=== PATIENT | female | born 1990 | race American Indian/Alaskan Native ===

== ENCOUNTER 2017-02-22 15:27 | Outpatient (CLI) | payer SELFPAY ==
[2017-02-22] MEDS ORDERED: LACTATED RINGERS 500 ML IV ONE (16:31)
[2017-02-22 16:44] VITALS: BP 108/60
[2017-02-22 18:58] LABS: Bacteria,Urine 4+ /HPF (Negative); Bilirubin,Urine NEG (Negative); Blood,Urine NEG (Negative); Ketones,Urine NEG (Negative); Leukocyte Esterase,Urine SM (Negative); Mucus,Urine 2+ /HPF; Nitrite,Urine NEG (Negative); Protein,Urine <15 mg/dL mg/dL (Negative); Urobilinogen,Urine < 2.0 mg/dL (<2.0)
--- NOTE | 2017-02-22 21:34 | Event Note ---
Date: 02/22/17 Patient is a 25 week, 2 day female who presented to L&D triage late this afternoon. She was seen and evaluated by Dr. Polk after her arrival to triage. Patient reports recurrent pelvic pain and pressure intermittently since yesterday. She was at work today and states the pain became unbearable so she came to hospital. Pt. denies falls or abdominal trauma. Pt. denies vaginal bleeding or leaking of fluid. Pt. reports active movement. GBS culture and GC/CT cultures were done by Dr. Polk. Pt. denies urinary symptoms. Pt. is well appearing, afebrile, VSS. Abdomen gravid, soft, nontender without guarding or rigidity. No contractions palpated. FHR 145-150 AGA. A few contractions noted upon review of tracing, no regular contractions. Unable to do FFN due to patient already being checked earlier this evening by MD. SVE: internal os closed, external os 2 cm, thick, soft, posterior. Urine sent for C&S. Consulted with Dr. Coto regarding patient and EFM/ cervical exam findings. Dr. Coto states to order an US for antomy and cervical length and have nurse call him with results. This plan was discussed with pt. and with nurse.
--- NOTE | 2017-02-22 23:00 | Ultrasound Report ---
FINAL REPORT PROCEDURE: US OB \T\gt; = 14 WEEKS FETUS TECHNIQUE: Real-time transabdominal sonography of the uterus, placenta, amniotic fluid, adnexa, and fetus was performed with image documentation. Detailed anatomic examination was performed. Measurements were obtained to determine age/size. M-mode Doppler was used to document heartbeat. CPT 41192 HISTORY: anatomy and cervical length COMPARISON: No prior studies are available for comparison. FINDINGS: GENERAL: IUP: Single living intrauterine . Position: Breech Placental position: Fundal, without previa. Amniotic fluid volume: Normal. MATERNAL: Uterus: Within normal limits. Cervical length: 3.4 cm. Internal Os: Closed. FETUS: Heart rate and rhythm: 162 BPM, Regular . Detailed anatomic examination: Normal. Normal visualized choroid plexus. Normal cerebellum. Normal ventricles. Normal visualized stomach. Normal visualized kidneys. Normal visualized bladder. Normal cord insert. Suboptimal four-chamber cardiac visualization. Normal visualized spine. Normal visualized extremities MEASUREMENTS: BPD: 5.5 cm, 22 weeks 5 days HC: 20.9 cm, 23 weeks 0 days. AC: 18.2 cm, 23 weeks 0 days FL: 4.3 cm, 24 weeks 0 days Mean Gestational Age (composite criteria): 23 weeks 1 day Estimated Weight: 603 grams. Estimated Due Date : June 20, 2017 IMPRESSION: Single intrauterine gestation at 23 weeks 1 day Estimated due date: June 20, 2017 Normal visualized anatomy with incomplete visualization of the four-chamber heart.
== END 2017-02-22 22:24 | disposition home or self-care (01) ==
LOC: TRG 15:27
PROVIDERS: ATTEND Obstetrics & Gynecology
DX: O32.1XX0 Maternal care for breech presentation, not applicable or unspecified (principal); O47.02 False labor before 37 completed weeks of gestation, second trimester; Z3A.23 23 weeks gestation of pregnancy
CPT/HCPCS: 76805; 81001; 87086; 87116; 87591

== ENCOUNTER 2017-05-14 11:57 | Inpatient (IN) | payer OTHER ==
[2017-05-14] MEDS ORDERED: ePHEDrine SULFATE IV PRN (12:45)
[2017-05-14] MEDS ORDERED: XYLOCAINE 2% INFILTRATI ONE (12:45)
[2017-05-14] MEDS ORDERED: BRETHINE SUB-Q PRN (12:45)
[2017-05-14] MEDS ORDERED: SUBLIMAZE IV PRN (12:45)
[2017-05-14] MEDS ORDERED: BRETHINE IVP PRN (12:45)
[2017-05-14] MEDS ORDERED: MINERAL OIL PO PRN (12:45)
[2017-05-14] MEDS ORDERED: PITOCin/NS 30 UNIT/500ML 30 UNITS/500 ML BAG IV SCH ×2 (13:00)
[2017-05-14] MEDS ORDERED: LACTATED RINGERS 1,000 ML IV SCH (13:00)
[2017-05-14] MEDS ORDERED: PITOCin/NS 20 UNIT/1000ML DRIP 20 UNITS/1,000 ML BAG IV SCH ×2 (13:00→23:00)
[2017-05-14] MEDS ORDERED: POLYCILLIN/NS 2 GM/100 ML 2 GM/100 ML BAG IV ONE (13:00)
[2017-05-14 15:02] LABS: Hematocrit 39.3 % (30.3-42.9); Hemoglobin 13.2 gm/dl (10.1-14.3); Mean Corpuscular HGB Conc 34 % (30-34); Mean Corpuscular Hemoglobin 33 pg (28-32); Mean Corpuscular Volume 99 fl (79-97); Platelet Count 176 K/mm3 (140-440); Red Blood Count 3.98 M/mm3 (3.65-5.03); Red Cell Distribution Width 13.7 % (13.2-15.2); White Blood Count 7.1 K/mm3 (4.5-11.0)
--- NOTE | 2017-05-14 15:57 | History and Physical Report ---
History of Present Illness Date of examination: 05/14/17 Date of admission: 05/14/17 11:57 Chief complaint: 36 weeks and 6 days with SROM. History of present illness: Patient is a 26 year old , EDC 06/05/17 who is at 36 weeks and 6 days gestation who presented to the labor floor complaining of ruptured membranes at 9:30 AM. She denied any contractions or bleeding. Initial exam showed clear fluid pooling and positive nitrazine test, cervix 3-4 cm/80%/ -2. fet;a tracing is a CAt 1. She is a patient of [facility] [employer] [facility] and she had missed several appointments and her last vist at [facility] was on 01/14/17. She has not had any visit anywhere since. She also has a history of delivery and was on Kamille injection until her last visit. She reports that she has an episode of vaginal bleeding last month and sent to the ER. She has not had any bleeding since that time. Past History - Obstetrical History : 4 Para: 3 Number of Pregnancies: 3 Number of Living Children: 3 Medications and Allergies Allergies Allergy/AdvReac Type Severity Reaction Status Date / Time No Known Allergies Allergy Verified 06/01/15 15:35 Home Medications Medication Instructions Recorded Confirmed Last Taken Type metroNIDAZOLE [Flagyl TAB] 500 mg PO BID #14 tablet 04/07/13 05/14/17 06/15/15 10:00 Rx Acetaminophen/Codeine 1 tab PO Q6H PRN #10 tab 04/24/14 05/14/17 10/02/14 17:00 Rx [Acetaminophen-Codeine #3 TAB] 1 tab Tablet 1 tab PO DAILY 10/09/14 05/14/17 05/14/17 08:00 History Active Meds: Active Medications Ephedrine Sulfate (Ephedrine Sulfate) 10 mg IV Q2M PRN PRN Reason: Hypotension Fentanyl (Sublimaze) 100 mcg IV Q2H PRN PRN Reason: Labor Pain Ampicillin Sodium (Polycillin/Ns 1 Gm/50 Ml) 1 gm in 50 mls @ 100 mls/hr IV Q4H [place] PRN Reason: Protocol Lactated Ringer's (Lactated Ringers) 1,000 mls @ 125 mls/hr IV DIRECT [place] Last Admin: 05/14/17 15:27 Dose: 125 mls/hr Oxytocin/Sodium Chloride (Pitocin/Ns 20 Unit/1000ml Drip) 20 units in 1,000 mls @ 125 mls/hr IV DIRECT [place] Oxytocin/Sodium Chloride (Pitocin/Ns 30 Unit/500ml) 30 units in 500 mls @ 1 mls /hr IV TITR [place]; 1 MILLIUNITS/MIN PRN Reason: Protocol Oxytocin/Sodium Chloride (Pitocin/Ns 30 Unit/500ml) 30 units in 500 mls @ 4 mls /hr IV TITR [place] PRN Reason: Protocol Mineral Oil (Mineral Oil) 30 ml PO QHS PRN PRN Reason: Constipation Terbutaline Sulfate (Brethine) 0.25 mg SUB-Q ONCE PRN PRN Reason: Hyperstimulation/Hypertonicity Terbutaline Sulfate (Brethine) 0.25 mg IVP ONCE PRN PRN Reason: Hyperstimulation/Hypertonicity - Vital Signs Vital signs: Vital Signs Temp Pulse Resp BP 98.3 F 79 18 101/68 05/14/17 15:34 05/14/17 15:34 05/14/17 15:34 05/14/17 15:34 Temp Pulse Resp BP Pulse Ox 98.3 F 79 18 101/68 05/14/17 15:34 05/14/17 15:38 05/14/17 15:34 05/14/17 15:38 - Physical Exam Cardiovascular: Normal S1, Normal S2 Lungs: Positive: Clear to auscultation Vulva: both: normal Uterus: Positive: enlarged Adnexa: both: normal Deep Tendon Reflex Grade: Normal +2 - Obstetrical FHR: category 1 Uterine Contraction Monitor Mode: External Cervical Dilatation: 3 Cervical Effacement Percentage: 80 station: -2 Uterine Contraction Pattern: Irregular Uterine Contraction Intensity: Mild Results Result Diagrams: 05/14/17 14:37 Abnormal lab results 05/14/17 Range/Units 14:37 MCV 99 H (79-97) fl MCH 33 H (28-32) pg All other labs normal. Assessment and Plan - Patient Problems (1) 36 weeks gestation of Current Visit: Yes Status: Acute Plan to address problem: Admit to Floor. (2) premature rupture of membranes (PPROM) with unknown onset of labor Current Visit: Yes Status: Acute Plan to address problem: Admit to L&D. Routine labs, IV fluid. and toco monitoring. IV ampiciliin for GBS prophylaxis. Will augment with pitocin.
[2017-05-14] MEDS ORDERED: POLYCILLIN/NS 1 GM/50 ML 1 GM/50 ML BAG IV SCH (16:49)
--- NOTE | 2017-05-14 22:20 | Procedure Note ---
OB Delivery Note - Delivery Date of Delivery: 05/14/17 Surgeon: GAYLE CARBALLO Estimated blood loss: 100cc - Vaginal Delivery presentation: vertex Delivery position: OA Intrapartum events: labor-<37 weeks, PROM->1hr before delivery Delivery induction: oxytocin Delivery augmentation: pitocin Delivery monitor: external FHT, external uterine Route of delivery: Delivery placenta: spontaneous Delivery cord: 3 umbilical vessels Episiotomy: none Delivery laceration: none Anesthesia: intravenous Delivery comments: delivered an placed on Mom's chest for [id number] bonding and delayed cord clamping. - A at 1 minute: 8 at 5 minutes: 9 Gender: Female (2257gms)
[2017-05-14] MEDS ORDERED: DULCOLAX PR PRN (22:21)
[2017-05-14] MEDS ORDERED: MILK OF MAGNESIA PO PRN (22:21)
[2017-05-14] MEDS ORDERED: PHENERGAN PO PRN (22:21)
[2017-05-14] MEDS ORDERED: LANSINOH TP PRN (22:21)
[2017-05-14] MEDS ORDERED: TUCKS PAD TP PRN (22:21)
[2017-05-14] MEDS ORDERED: ZOFRAN IV PRN (22:21)
[2017-05-14] MEDS ORDERED: TYLENOL PO PRN (22:21)
[2017-05-14] MEDS ORDERED: BENADRYL PO PRN (22:21)
[2017-05-14] MEDS ORDERED: NORCO 5/325 PO PRN (22:21)
[2017-05-14] MEDS ORDERED: PHENERGAN PR PRN (22:21)
[2017-05-14] MEDS ORDERED: SODIUM CHLORIDE FLUSH SYRINGE 10 ML IV NR (23:00)
[2017-05-15] MEDS ORDERED: SENOKOT S PO SCH
[2017-05-15] MEDS: MOTRIN PO SCH ×5 (00:50→23:59)
[2017-05-15] MEDS ORDERED: BOOSTRIX IM ONE (06:00)
[2017-05-15] MEDS ORDERED: M-M-R II VACCINE SUB-Q ONE (06:00)
--- NOTE | 2017-05-15 10:31 | Progress Note ---
Assessment and Plan A: PP day #1 Stable P: Follow Routine Orders D/C Home in the AM RTO in 6 Weeks Subjective - Subjective Date of service: 05/15/17 Patient reports: appetite normal, voiding normally, pain well controlled, flatus , bowel movement, ambulating normally : doing well, bottle feeding (and ) Objective - Vital Signs Latest vital signs: Vital Signs Temp Pulse Resp BP BP Pulse Ox 05/15/17 09:00 98.1 F 59 L 18 94/48 95 05/15/17 05:15 98.3 F 71 18 125/68 97 05/15/17 01:40 98.2 F 69 18 127/89 99 05/15/17 01:37 69 127/89 99 05/15/17 00:50 18 05/14/17 23:04 76 112/72 05/14/17 22:26 88 126/83 05/14/17 22:08 22 05/14/17 21:04 70 82/51 05/14/17 20:04 72 113/74 05/14/17 20:02 90 99 05/14/17 19:19 78 125/55 05/14/17 19:16 97.5 F L 18 05/14/17 15:38 79 101/68 05/14/17 15:34 98.3 F 79 18 101/68 Intake and Output 05/14/17 05/15/17 05/15/17 22:59 06:59 14:59 Intake Total 242.133 240 Output Total 300 Balance 242.133 -60 Intake: IV 2.133 PITOCin/NS 30 UNIT/500ML 2.133 30 units In 500 ml @ 4 MILLIUNITS/MIN 4 mls/hr IV TITR [place] Rx#:[id number] Oral 240 240 Output: Urine 300 Void 300 Other: Total, Intake Amount 120 240 Total, Output Amount 300 # Voids Void 1 1 Estimated Blood Loss 100 - Exam Breasts: Present: normal Cardiovascular: Present: Regular rate Lungs: Present: Clear to auscultation, Normal air movement Abdomen: Present: normal appearance, soft, normal bowel sounds Uterus: Present: normal, firm, fundal height below umbilicus Extremities: Present: normal - Labs Labs: Abnormal lab results 05/14/17 Range/Units 14:37 MCV 99 H (79-97) fl MCH 33 H (28-32) pg
--- NOTE | 2017-05-15 10:32 | Discharge Summary ---
Providers - Providers Date of Admission: 05/14/17 11:57 Date of discharge: 05/16/17 Attending physician: LAQUITA DEGROOT MD Primary care physician: LAQUITA DEGROOT MD Hospitalization Reason for admission: active labor Delivery: Episiotomy: none Laceration: none Other procedures: none complications: none Discharge diagnosis: delivery baby: female Condition at discharge: Good Disposition: DC-01 TO HOME OR SELFCARE Plan - Provider Discharge Summary Activity: routine, no sex for 6 weeks, no heavy lifting 4 weeks, no strenuous exercise Diet: routine Instructions: routine Additional instructions: [] Smoking cessation referral if applicable(refer to patient education folder for contact #) [] Refer to [facility]'s [facility] Booklet Call your doctor immediately for: * Fever > 100.5 * Heavy vaginal bleeding ( >1 pad per hour) * Severe persistent headache * Shortness of breath * Reddened, hot, painful area to leg or breast * Drainage or odor from incision. * Keep incision clean and dry at all times and follow doctor's instructions regarding bathing/showering - Follow up plan Follow up: LAQUITA DEGROOT MD [Primary Care Provider] - 6 Weeks
[2017-05-15] MEDS ORDERED: DEPO-PROVERA (CONTRACEPTION) IM NR (11:00)
[2017-05-15 11:10] LABS: Hematocrit 35.3 % (30.3-42.9); Hemoglobin 12.2 gm/dl (10.1-14.3)
[2017-05-15] MEDS: FEOSOL PO SCH ×2 (12:11→21:46)
[2017-05-15] MEDS: PRENATAL VITAMIN PO SCH (12:11)
[2017-05-15] MEDS: COLACE PO SCH ×2 (12:12→21:46)
[2017-05-16] MEDS: MOTRIN PO SCH ×2 (05:50→16:54)
[2017-05-16] MEDS: PRENATAL VITAMIN PO SCH (10:38)
[2017-05-16] MEDS: COLACE PO SCH (10:38)
[2017-05-16] MEDS: FEOSOL PO SCH (10:38)
[2017-05-16] MEDS ORDERED: DEPO-PROVERA (CONTRACEPTION) IM NR (19:00)
[2017-05-16 19:02] VITALS: BP 99/60
== END 2017-05-16 21:45 | disposition home or self-care (01) | DRG 775 ==
LOC: LD 11:57 → OB 05-15 01:15
PROVIDERS: ADMIT Obstetrics & Gynecology; ATTEND Obstetrics & Gynecology
PROC: 10E0XZZ Delivery of Products of Conception, External Approach (ICD-10-PCS; principal; 2017-05-14)
PROC: 3E033VJ Introduction of Other Hormone into Peripheral Vein, Percutaneous Approach (ICD-10-PCS; 2017-05-14)
PROC: 3E0234Z Introduction of Serum, Toxoid and Vaccine into Muscle, Percutaneous Approach (ICD-10-PCS; 2017-05-15)
DX: O60.14X0 Preterm labor third trimester with preterm delivery third trimester, not applicable or unspecified (principal); O42.013 Preterm premature rupture of membranes, onset of labor within 24 hours of rupture, third trimester; Z3A.36 36 weeks gestation of pregnancy; Z37.0 Single live birth; Z23 Encounter for immunization
CPT/HCPCS: 36415; 85014; 85018; 85027; 86850; 86900; 86901; 99211; A6250; G0463; J0290; J1050; J2590; J3010; J7120

== ENCOUNTER 2018-03-02 17:56 | Emergency (ER) | payer OTHER ==
[2018-03-02 18:02] VITALS: BP 115/62
[2018-03-02] MEDS ORDERED: DECADRON IM ONE (19:56)
[2018-03-02] MEDS ORDERED: BENADRYL IM ONE (19:56)
--- NOTE | 2018-03-02 20:05 | Emergency Department Report ---
ED Rash HPI - HPI Chief Complaint: Skin Rash Stated Complaint: BREAKING OUT REAL BAD Time Seen by Provider: 03/02/18 19:56 Suspected Cause: Insect Rash Symptoms: Yes Itching, No Facial Swelling, No Tongue/Oral Swelling, No Breathing Difficulties, No Choking Sensation, No Wheezing/Dyspnea, No Peeling, No Blistering, No Fever, No Lightheaded, No Malaise, No Myalgias Severity: moderate Other History: 27-year-old Brazilian female comes in for a full body itching rash. Patient port that it started a few days ago she's been using over-the- counter calamine lotion and Benadryl which she reports has not helped. Patient reports that she was exposed to some type of blood in her closet at work and not able to identify the blood. She reports that the rashes on her arms face legs shoulder. Patient ports no known drug allergies currently takes no medications on a daily basis and has no past medical history. ED Review of Systems ROS: Stated complaint: BREAKING OUT REAL BAD Other details as noted in HPI Comment: All other systems reviewed and negative Skin: rash ED Past Medical Hx - Past Medical History Previous Medical History?: No Hx Hypertension: No Hx Congestive Heart Failure: No Hx Diabetes: No Hx Deep Vein Thrombosis: No Hx Renal Disease: No Hx Sickle Cell Disease: No Hx Seizures: No Hx Asthma: No Hx COPD: No Hx HIV: No - Surgical History Past Surgical History?: No - Social History Smoking Status: Never Smoker Substance Use Type: None - Medications Home Medications: Home Medications Medication Instructions Recorded Confirmed Last Taken Type metroNIDAZOLE [Flagyl TAB] 500 mg PO BID #14 tablet 04/07/13 05/14/17 06/15/15 10:00 Rx Acetaminophen/Codeine 1 tab PO Q6H PRN #10 tab 04/24/14 05/14/17 10/02/14 17:00 Rx [Acetaminophen-Codeine #3 TAB] 1 tab Tablet 1 tab PO DAILY 10/09/14 05/14/17 05/14/17 08:00 History Cetirizine HCl [ZyrTEC] 10 mg PO QDAY #14 capsule 03/02/18 Unknown Rx Prednisone [predniSONE 5 mg (6-Day 5 mg PO .TAPER #1 tab.ds.pk 03/02/18 Unknown Rx Pack, 21 Tabs)] Rash Exam - Exam General: Vital signs noted. No distress. Alert and acting appropriately. HEENT: No Periorbital Edema, No Conjuctival Injection, No Chemosis, No Perioral Edema, No Tongue Edema, No Uvular Edema, No Compromised Airway, No Drooling Lungs: Yes Good Air Exchange (Normal Breath Sounds), No Wheezes, No Ronchi, No Stridor, No Cough, No Labored Respirations, No Retractions, No Use of Accessory Muscles, No Other Abnormal Lung Sounds Heart: Yes Regular, No Murmur Skin: Yes Maculopapular Rash (face, shoulders, legs, arms, back) Other: Positive: Abdomen Normal, Neurologic Normal, Musculoskeletal Normal ED Course Vital Signs 03/02/18 17:59 Temperature 97.9 F Pulse Rate 75 Respiratory 18 Rate Blood Pressure 115/62 O2 Sat by Pulse 99 Oximetry ED Medical Decision Making - Medical Decision Making Patient has been evaluated by this provider in fast track Patient will be given a injection of dexamethasone 10 mg IM, and Benadryl 25 mg IM Discussed patient I will discharge her on a steroid Dosepak and for her to continue taking Benadryl and close [id number] Zyrtec. Signed patient verbalized understanding Critical care attestation.: If time is entered above; I have spent that time in minutes in the direct care of this critically ill patient, excluding procedure time. ED Disposition Clinical Impression: Rash Disposition: DC-01 TO HOME OR SELFCARE Is pt being admited?: No Does the pt Need Aspirin: No Condition: Stable Instructions: Acute Rash (ED) Additional Instructions: Please take medications as prescribed. If her symptoms persist or gets worse please follow up with her primary care provider. Prescriptions: Cetirizine HCl [ZyrTEC] 10 mg PO QDAY #14 capsule Prednisone [predniSONE 5 mg (6-Day Pack, 21 Tabs)] 5 mg PO .TAPER #1 tab.ds.pk Referrals: PRIMARY CARE, [Primary Care Provider] - 3-5 Days
== END 2018-03-02 20:33 | disposition home or self-care (01) ==
LOC: ED 17:56
DX: R21 Rash and other nonspecific skin eruption (principal)
CPT/HCPCS: 96372; 99282; J1100; J1200

== ENCOUNTER 2019-02-18 17:59 | Outpatient (CLI) | payer OTHER ==
[2019-02-18] MEDS ORDERED: LACTATED RINGERS 1,000 ML IV ONE (19:28)
[2019-02-18 20:15] LABS: Bacteria,Urine 1+ /HPF (Negative); Bilirubin,Urine NEG (Negative); Blood,Urine NEG (Negative); Color,Urine Yellow (Yellow); Mucus,Urine 3+ /HPF; Protein,Urine <15 mg/dL mg/dL (Negative)
[2019-02-18] MEDS ORDERED: TYLENOL PO ONE (20:33)
[2019-02-18 21:45] VITALS: BP 96/65
--- NOTE | 2019-02-19 00:08 | Ultrasound Report ---
Limited obstetrical Ultrasound Indication: cramping, abdominal pain, headaches, duration 3-4 days Shows a normal-appearing intrauterine with an estimated gestational age of 24 weeks 2 days. I do not see a significant discrepancy between head and body measurements. No obvious anomalies are seen. Cardiac activity was noted at 145 bpm. Fetus is in a cephalic positio n. Placenta is posterior and free of the internal cervical os with no placental abnormalities obviou s. Estimated weight is 674 g +/- 100 g. Amniotic fluid volume appears appropriate for age. AF I measurement is 10.7 cm which is within normal limits. IMPRESSION: Normal-appearing intrauterine Signer Name: Og Green MD Signed: 02/19/2019 12:04 AM Workstation Name: [email or web address]
== END 2019-02-18 23:03 | disposition home or self-care (01) ==
LOC: TRG 17:59
PROVIDERS: ATTEND Obstetrics & Gynecology
DX: O47.02 False labor before 37 completed weeks of gestation, second trimester (principal); Z3A.26 26 weeks gestation of pregnancy
CPT/HCPCS: 76805; 81001

== ENCOUNTER 2019-04-22 11:50 | Outpatient (CLI) | payer OTHER ==
[2019-04-22 13:32] VITALS: BP 101/61
[2019-04-22] MEDS ORDERED: LACTATED RINGERS 1,000 ML IV SCH (14:00)
[2019-04-22 14:17] LABS: Bacteria,Urine 4+ /HPF (Negative); Mucus,Urine FEW /HPF
[2019-04-22 14:30] LABS: Bilirubin,Urine NEG (Negative); Blood,Urine NEG (Negative); Color,Urine Yellow (Yellow); Protein,Urine <15 mg/dL mg/dL (Negative); Urobilinogen,Urine < 2.0 mg/dL (<2.0)
[2019-04-22] MEDS ORDERED: ceFAZolin/Water 2 GM/20 ML 2 GM/20 ML SYRINGE IV SCH (15:52)
== END 2019-04-22 17:32 | disposition home or self-care (01) ==
LOC: TRG 11:50
PROVIDERS: ATTEND Obstetrics & Gynecology
DX: O26.893 Other specified pregnancy related conditions, third trimester (principal); R10.30 Lower abdominal pain, unspecified; O47.03 False labor before 37 completed weeks of gestation, third trimester; Z3A.33 33 weeks gestation of pregnancy
CPT/HCPCS: 59025; 81001; 87086; 96361; 96365; 96366; J0690; J7120; 96360

== ENCOUNTER 2019-05-20 10:15 | Inpatient (IN) | payer OTHER ==
--- NOTE | 2019-05-20 11:07 | History and Physical Report ---
History of Present Illness Date of examination: 05/20/19 Chief complaint: Labor History of present illness: Pt is a 28yo BF EDC 06/07/19; EGA 37 3/7 weeks presented to the office complaining of abdominal pain after being accidentally kicked in her abdomen by her toddler last night. She received late care at [facility] since 36 weeks and co managed by [facility] for a history of previous labor and deliveries. records are available and GBS is Positive. Past History Past Medical History: no pertinent history Past Surgical History: no surgical history Social history: no significant social history, single - Obstetrical History Expected Date of Delivery: 06/07/19 Actual Gestation: 37 Week(s) 3 Day(s) : 5 Medications and Allergies Allergies Allergy/AdvReac Type Severity Reaction Status Date / Time No Known Allergies Allergy Verified 06/01/15 15:35 Home Medications Medication Instructions Recorded Confirmed Last Taken Type metroNIDAZOLE [Flagyl TAB] 500 mg PO BID #14 tablet 04/07/13 05/14/17 06/15/15 10:00 Rx Acetaminophen/Codeine 1 tab PO Q6H PRN #10 tab 04/24/14 05/14/17 10/02/14 17:00 Rx [Acetaminophen-Codeine #3 TAB] 1 tab Tablet 1 tab PO DAILY 10/09/14 05/14/17 05/14/17 08:00 History Cetirizine HCl [ZyrTEC] 10 mg PO QDAY #14 capsule 03/02/18 Unknown Rx Prednisone [predniSONE 5 mg (6-Day 5 mg PO .TAPER #1 tab.ds.pk 03/02/18 Unknown Rx Pack, 21 Tabs)] Review of Systems All systems: negative - Physical Exam Breasts: Positive: deferred Cardiovascular: Regular rate Lungs: Positive: Clear to auscultation Abdomen: Positive: normal appearance Genitourinary (Female): Positive: normal external genitalia Vagina: Positive: normal moisture Uterus: Positive: enlarged Extremities: Positive: normal - Obstetrical FHR: category 1 Uterine Contraction Monitor Mode: External Cervical Dilatation: 4 Cervical Effacement Percentage: 60 station: -2 Uterine Contraction Pattern: Regular Uterine Tone Measurement Phase: Contraction Uterine Contraction Intensity: Moderate Results Result Diagrams: 05/20/19 11:40 All other labs normal. Assessment and Plan - Patient Problems (1) 37 weeks gestation of Onset Date: 05/20/19 Current Visit: Yes Status: Acute Plan to address problem: A: IUP @ 37 3/7 weeks in labor History of deliveries +GBS P: Admit to L&D for expectant vaginal delivery IV Ampicillin (2) History of delivery Onset Date: 05/20/19 Current Visit: Yes Status: Chronic (3) History of labor Onset Date: 05/20/19 Current Visit: Yes Status: Chronic
[2019-05-20] MEDS ORDERED: ePHEDrine SULFATE 50 MG/1 ML INJ IV PRN (11:22)
[2019-05-20] MEDS ORDERED: MINERAL OIL 30 ML ORAL LIQD PO PRN (11:22)
[2019-05-20] MEDS ORDERED: LIDOCAINE (2%) 20 MG/1 ML VIAL 20 ML MDV INFILTRATI ONE (11:22)
[2019-05-20] MEDS ORDERED: BUTORPHANOL 2 MG/1 ML INJ IV PRN (11:22)
[2019-05-20] MEDS ORDERED: fentaNYL 100 MCG/2 ML INJ IV PRN (11:22)
[2019-05-20] MEDS ORDERED: TERBUTALINE 1 MG/1 ML INJ SUB-Q PRN (11:22)
[2019-05-20] MEDS ORDERED: TERBUTALINE 1 MG/1 ML INJ IVP PRN (11:22)
[2019-05-20] MEDS ORDERED: OXYTOCIN DRIP 30 UNITS/500 ML BAG IV SCH ×2 (12:00)
[2019-05-20] MEDS ORDERED: OXYTOCIN 20 UNIT/1000ML DRIP 20 UNITS/1,000 ML BAG IV SCH ×2 (12:00→15:00)
[2019-05-20] MEDS ORDERED: LACTATED RINGERS 1,000 ML IV SCH (12:00)
[2019-05-20] MEDS ORDERED: AMPICILLIN/NS 2 GM/100 ML 2 GM/100 ML BAG IV ONE (12:00)
[2019-05-20 12:35] LABS: Hematocrit 39.7 % (30.3-42.9); Hemoglobin 13.4 gm/dl (10.1-14.3); Mean Corpuscular HGB Conc 34 % (30-34); Mean Corpuscular Volume 97 fl (79-97); Platelet Count 247 K/mm3 (140-440); Red Blood Count 4.07 M/mm3 (3.65-5.03); Red Cell Distribution Width 13.8 % (13.2-15.2)
[2019-05-20] MEDS ORDERED: ONDANSETRON 4 MG/2 ML INJ ONE (13:38)
--- NOTE | 2019-05-20 14:06 | Procedure Note ---
OB Delivery Note - Delivery Date of Delivery: 05/20/19 Surgeon: GAYLE CARBALLO Estimated blood loss: other (150cc) - Vaginal Delivery presentation: vertex Delivery position: OA Intrapartum events: precipitous labor- <3hr Delivery induction: none Delivery monitor: external FHT, external uterine Route of delivery: Delivery placenta: spontaneous Delivery cord: 3 umbilical vessels Episiotomy: none Delivery laceration: none Anesthesia: none Delivery comments: delivered OA and placed on Mom's chest for [id number] bonding and delayed cord clamping, cut by Dad - Infant A at 1 minute: 8 at 5 minutes: 9 Infant Gender: Male (2765gms)
[2019-05-20] MEDS ORDERED: PROMETHAZINE 25 MG RECT SUPP PR PRN (14:07)
[2019-05-20] MEDS ORDERED: WITCH HAZEL/ GLYCERIN PAD TP PRN (14:07)
[2019-05-20] MEDS ORDERED: LANOLIN/ZINC/DIMETHICONE (LANSINOH) 7 GM TP PRN (14:07)
[2019-05-20] MEDS ORDERED: diphenhydrAMINE 25 MG CAP PO PRN (14:07)
[2019-05-20] MEDS ORDERED: ONDANSETRON 4 MG/2 ML INJ IV PRN (14:07)
[2019-05-20] MEDS ORDERED: ACETAMINOPHEN 325 MG TAB PO PRN (14:07)
[2019-05-20] MEDS ORDERED: PROMETHAZINE 25 MG TAB PO PRN (14:07)
[2019-05-20] MEDS ORDERED: MAGNESIUM HYDROXIDE (MOM) ORAL LIQD UDC PO PRN (14:07)
[2019-05-20] MEDS: IBUPROFEN 600 MG TAB PO SCH ×2 (14:33→23:26)
[2019-05-20] MEDS: HYDROcodone/ACETAMINOPHEN 5-325 MG TAB PO PRN (14:39)
[2019-05-20] MEDS ORDERED: AMPICILLIN/NS 1 GM/50 ML 1 GM/50 ML BAG IV SCH (16:00)
[2019-05-20] MEDS: FERROUS SULFATE 325 MG TAB PO SCH (21:59)
[2019-05-21] MEDS: IBUPROFEN 600 MG TAB PO SCH ×4 (04:57→21:30)
[2019-05-21] MEDS ORDERED: TETANUS,DIPH,PERTUSS(ACELL) VACCINE 0.5 ML SYRINGE IM ONE (06:00)
[2019-05-21 06:11] LABS: Hematocrit 32.7 % (30.3-42.9); Hemoglobin 11.2 gm/dl (10.1-14.3)
--- NOTE | 2019-05-21 09:19 | Progress Note ---
Assessment and Plan - Patient Problems (1) 37 weeks gestation of Onset Date: 05/20/19 Current Visit: Yes Status: Resolved (2) History of delivery Onset Date: 05/20/19 Current Visit: Yes Status: Chronic (3) History of labor Onset Date: 05/20/19 Current Visit: Yes Status: Chronic (4) (normal spontaneous vaginal delivery) Onset Date: 05/21/19 Current Visit: Yes Status: Resolved Plan to address problem: A: S/P - PPD #1 Doing well Asymptomatic anemia - stable P: May go home tomorrow. Subjective - Subjective Date of service: 05/21/19 Principal diagnosis: s/p - PPD #1 Interval history: Pt is feeling well without complaints. Bleeding improved. Patient reports: appetite normal, voiding normally, pain well controlled, flatus, ambulating normally, no dizzy ambulation, no nauseated : doing well, bottle feeding Objective - Vital Signs Latest vital signs: Vital Signs Temp Pulse Resp BP BP BP Pulse Ox 05/21/19 04:57 18 05/21/19 02:07 98.2 F 56 L 18 92/50 97 05/20/19 23:26 18 05/20/19 20:27 97.7 F 55 L 16 109/52 98 05/20/19 16:30 97.4 F L 59 L 16 102/37 98 05/20/19 15:29 78 102/56 05/20/19 15:14 62 101/59 05/20/19 14:59 61 106/60 05/20/19 14:44 83 111/61 05/20/19 14:39 18 05/20/19 14:30 95 H 134/72 05/20/19 14:15 126 H 146/63 05/20/19 13:59 75 125/64 05/20/19 13:58 78 136/58 05/20/19 13:28 75 114/56 05/20/19 12:15 88 113/77 05/20/19 10:55 98.0 F 78 16 114/68 Intake and Output 05/20/19 05/21/19 05/21/19 22:59 06:59 14:59 Intake Total 240 480 Output Total 800 800 Balance -560 -320 Intake: Intake, Free Water 240 480 Output: Urine 800 800 Void 800 800 Other: Total, Output Amount 800 800 # Voids Void 2 - Exam Breasts: Present: deferred Abdomen: Present: normal appearance, soft Uterus: Present: normal, firm, fundal height below umbilicus Extremities: Present: normal - Labs Labs: Abnormal lab results 05/20/19 Range/Units 11:40 MCH 33 H (28-32) pg Laboratory Tests 05/20/19 05/20/19 05/21/19 11:40 11:40 05:36 WBC 8.1 RBC 4.07 Hgb 13.4 11.2 Hct 39.7 32.7 D MCV 97 MCH 33 H MCHC 34 RDW 13.8 Plt Count 247 Blood Type O POSITIVE Antibody Screen Negative
--- NOTE | 2019-05-21 10:44 | Discharge Summary ---
Providers - Providers Date of Admission: 05/20/19 10:16 Date of discharge: 05/22/19 Attending physician: GAYLE CARBALLO Primary care physician: GAYLE CARBALLO Hospitalization Reason for admission: active labor, IUP at term Delivery: Episiotomy: none Laceration: none Incision: normal Other procedures: none complications: none Discharge diagnosis: IUP at term delivered [place] baby: male Hospital course: Unremarkable. Condition at discharge: Good Disposition: DC-01 TO HOME OR SELFCARE - Discharge Diagnoses (1) 37 weeks gestation of Status: Resolved (2) History of delivery Status: Chronic (3) History of labor Status: Chronic (4) (normal spontaneous vaginal delivery) Status: Resolved Plan - Discharge Medications Prescriptions: Ferrous Sulfate [Feosol 325 MG tab] 325 mg PO BID #60 tablet Ibuprofen [Motrin 600 MG tab] 600 mg PO Q6H #30 tablet Vit-Fe Fumar-FA [ Vitamin] 1 each PO QDAY #30 tablet - Provider Discharge Summary Activity: routine, no sex for 6 weeks, no heavy lifting 4 weeks, no strenuous exercise Diet: routine Instructions: routine Additional instructions: [] Smoking cessation referral if applicable(refer to patient education folder for contact #) [] Refer to [facility]'s [facility] Booklet Call your doctor immediately for: * Fever > 100.5 * Heavy vaginal bleeding ( >1 pad per hour) * Severe persistent headache * Shortness of breath * Reddened, hot, painful area to leg or breast * Drainage or odor from incision. * Keep incision clean and dry at all times and follow doctor's instructions regarding bathing/showering - Follow up plan Follow up: GAYLE CARBALLO MD [Primary Care Provider] - 6 Weeks VIVIENNE SANDHU NP [Referring] - 6 Weeks
[2019-05-21] MEDS: PRENATAL VIT27-FE FUMARATE-FOLIC ACID VIT TAB PO SCH (11:43)
[2019-05-21] MEDS: FERROUS SULFATE 325 MG TAB PO SCH ×2 (11:44→21:59)
[2019-05-21] MEDS: HYDROcodone/ACETAMINOPHEN 5-325 MG TAB PO PRN ×2 (12:50→21:58)
[2019-05-21] MEDS ORDERED: MEASLES, MUMPS & RUBELLA 12,500 UNIT/0.5 ML VACCINE SUB-Q ONE (14:07)
[2019-05-22] MEDS: IBUPROFEN 600 MG TAB PO SCH ×2 (03:05→13:17)
[2019-05-22] MEDS: HYDROcodone/ACETAMINOPHEN 5-325 MG TAB PO PRN (05:33)
[2019-05-22] MEDS: PRENATAL VIT27-FE FUMARATE-FOLIC ACID VIT TAB PO SCH (10:32)
[2019-05-22] MEDS: FERROUS SULFATE 325 MG TAB PO SCH (10:32)
[2019-05-22 16:09] VITALS: BP 128/75
== END 2019-05-22 15:48 | disposition home or self-care (01) | DRG 775 ==
LOC: TRG 10:15 → LD 10:16 → TRG 10:17 → OB 16:09
PROVIDERS: ADMIT Obstetrics & Gynecology; ATTEND Obstetrics & Gynecology
PROC: 10E0XZZ Delivery of Products of Conception, External Approach (ICD-10-PCS; principal; 2019-05-20)
PROC: 3E0234Z Introduction of Serum, Toxoid and Vaccine into Muscle, Percutaneous Approach (ICD-10-PCS; 2019-05-21)
PROC: 3E0134Z Introduction of Serum, Toxoid and Vaccine into Subcutaneous Tissue, Percutaneous Approach (ICD-10-PCS; 2019-05-21)
DX: O99.824 Streptococcus B carrier state complicating childbirth (principal); O62.3 Precipitate labor; O90.81 Anemia of the puerperium; Z3A.37 37 weeks gestation of pregnancy; Z37.0 Single live birth
CPT/HCPCS: 36415; 85014; 85018; 85027; 86850; 86900; 86901; 90715; G0378; J0290; J2405; J2590; J3010; J7120